=== PATIENT | female | born 1995 | race Hispanic/Latino ===

== ENCOUNTER 2019-03-29 07:47 | Inpatient (IN) | payer MEDICAID | END 2019-04-03 16:30 | disposition home or self-care (01) | LOC: DAHIP 07:47 → 2DH 04-02 17:18 → 2CV 10:59 → 2CH 03-30 16:17 | PROC: 02VX3DZ Restriction of Thoracic Aorta, Ascending/Arch with Intraluminal Device, Percutaneous Approach (ICD-10-PCS; principal; 2019-03-29 10:59) | PROC: 02N Heart and Great Vessels, Release (ICD-10-PCS; 2019-03-29 10:59) | DX: I71.2 Thoracic aortic aneurysm, without rupture (principal); R65.11 Systemic inflammatory response syndrome (SIRS) of non-infectious origin with acute organ dysfunction; N17.9 Acute kidney failure, unspecified; E87.6 Hypokalemia; I35.1 Nonrheumatic aortic (valve) insufficiency; J98.11 Atelectasis ==

== ENCOUNTER → 2020-07-24 | Outpatient (CLI) | payer MEDICAID | END | disposition home or self-care (01) | LOC: SHCH 07-20 08:32 | PROVIDERS: ATTEND Internal Medicine Cardiovascular Disease | DX: I71.2 Thoracic aortic aneurysm, without rupture (principal) | CPT/HCPCS: 93306; 93356 ==